=== PATIENT | female | born 1995 | race Caucasian/White ===

== ENCOUNTER 2020-02-19 08:00 | Outpatient (REF) | payer BC, SELFPAY | END 2020-02-19 08:01 | disposition home or self-care (01) | LOC: HO.LAB 08:00 | PROVIDERS: Visit Provider Internal Medicine | DX: Z20.822 Contact with and (suspected) exposure to COVID-19 (principal) | CPT/HCPCS: 36415; C9803; U0003 ==

== ENCOUNTER 2020-04-07 07:42 | Outpatient (REF) | payer BC, SELFPAY | END 2020-04-07 07:43 | disposition home or self-care (01) | LOC: HO.LAB 07:42 | PROVIDERS: Visit Provider Internal Medicine | DX: Z20.822 Contact with and (suspected) exposure to COVID-19 (principal) | CPT/HCPCS: 36415; C9803; U0003; U0005 ==

== ENCOUNTER 2023-05-25 15:54 | Outpatient (AMB) | payer OTHER, SELFPAY ==
[2023-05-25 16:08] VITALS: BP 142/84; PULSE 92; O2SAT 98; BMI 29.0
--- NOTE | 2023-05-25 16:08 | A.OFFPC_ITS ---
Vital Signs 05/25/23 16:08 Height 5 ft 10.5 in Weight 205 lb 2 oz BMI 29.0 BP 142/84 H Blood Pressure Location Lt brachial Position Sitting Pulse 92 Pulse Source Pulse Oximeter Pulse Oximetry (%) 98 Oxygen Delivery Method Room Air Intake Visit Reasons: Physical Exam Intake Note: Patient is here today for a physical AND ADHD RX request. 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 Accompanied by: Self / Same As Patient Allergies craw fish Allergy (Intermediate, Uncoded 05/25/23 16:24) Hives Medication List - Last Reconciled 05/25/23 by Bird Bermudez PA-C lorazepam 0.5 mg PO DAILY PRN trazodone 50 mg PO BEDTIME 90 days Tobacco use date assessed: 05/25/23 Dental Screening Dental Screen Date: 05/25/23 Did you have a dental visit in the last 12 months?: Yes Did you have a dental problem in the last 6 months where you did not have access to dental care?: No Was dental information given to patient?: Patient has dentist HPI Physical Exam HPI Details Patient is a 27 year male here today for annual physical. This is the 1st time I am meeting this 27-year-old with a past medical history significant for ADHD, depression and anxiety. 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 His ADHD does have affect on his attention and focus on his school work. -->ADHD: Has been on stimulant medicati on for ADHD for quite some time now. Did see the [facility] ADHD center and was diagnosed positively with the disorder. He had significant reduction in his ADHD symptoms with stimulant ADHD medication. He now needs PCP to manage his stimulant medication. Noted elevated blood pressure reading today in office. He is asymptomatic without any headaches, chest pain or dizziness. Advised to monitor his blood pressure at home. He does have a blood pressure cuff at home. Vaccine: UTD with COVID and Tdap. [facility] Medical History GERD (gastroesophageal reflux disease) Surgical History History of endoscopy History of wisdom tooth extraction Family History Mother HTN (hypertension) Father HTN (hypertension) Substance abuse Social History (Updated 05/25/23 @ 16:32 by Bird Bermudez PA-C) Housing: House (rented) Alcohol intake: current Alcohol intake frequency: a few times a week Alcohol type: other Patient Tobacco Use Status: Former Tobacco user (02/2022) Quit Date: 2022 e-Cigarette/Vaping Use: Never Used Second Hand Smoke Exposure: No Substance Use Type: Marijuana service: No Current occupational status: employed 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 1. Little interest or pleasure in doing things: not at all 2. Feeling down, depressed, or hopeless: not at all 3. Trouble falling or staying asleep, or sleeping too much: not at all 4. Feeling tired or having little energy: not at all 5. Poor appetite or overeating: not at all 6. Feeling bad about yourself - or that you are a failure or have let yourself or your family down: not at all 7. Trouble concentrating on things, such as reading the newspaper or watching television: not at all 8. Moving or speaking so slowly that other people could have noticed. Or the opposite - being so fidgety or restless that you have been moving around a lot more than usual: not at all 9. Thoughts that you would be better off or of hurting yourself in some way: not at all Total score: 0 Depression Screening Interpretation: Negative Depression Screening Done: Yes 60528 - PHQ-9 Billing: Yes Source: Developed by Drs. Eduardo Jamison, Sheyla Hodge, Jase Cartwright and colleagues, with an educational lucretia from [employer]. Thrive Questionnaire Date Thrive assessed: 05/25/23 I am a: Patient What is your living situation today?: I have a steady place to live Within the past 12 months, did the food you bought not last and you didn't have the money to get more?: Never true Within the past 12 months, did you worry whether your food would run out before you got money to buy more?: Never true Do you have trouble paying for medicines?: No Do you have trouble getting transportation to medical appointments?: No Do you have trouble paying your heating and electricity bill?: No Do you have trouble taking care of your child, family member or friend?: No Do you have trouble with day-to-day activities such as bathing, preparing meals, shopping, managing finances, etc.?: No Are you currently unemployed and looking for a job?: No Are you interested in more education?: No Please select the resources that you would like help with: None Currently or been in a relationship where the following occur: no concerns reported THRIVE Score: 0 AUDIT C Alcohol Use Questionnaire (AUDIT-C) 1. How often do you have a drink containing alcohol?: Never 3. How often do you have six or more drinks on one occasion?: Never Total Score: 0 JEB-7 AMB Questionnaire JEB-7 Date JEB - 7 assessed: 05/25/23 Feeling nervous, anxious, or on edge: 2 = More than half the days Not being able to stop or control worryin = Nearly every day Worrying too much about different things: 3 = Nearly every day Trouble relaxin = More than half the days Being so restless that it is hard to sit still: 1 = Several days Becoming easily annoyed or irritable: 3 = Nearly every day Feeling afraid as if something awful might happen: 2 = More than half the days Total JEB-7 score (0-4 normal; 5-9 mild; 10-14 moderate; 15-21 severe): 16 Source: Developed by Drs. Eduardo Jamison, Sheyla Hodge, Jase Cartwright and colleagues, with an educational lucretia from [employer]. JEB-7 Assessment Billing JEB-7 Assessment Tool: JEB-7 Assessment 32495 Review of Systems Const Denies body aches, Denies chills, Denies excessive sweating, Denies fatigue, Denies fever(s) and Denies headache(s) Eyes Denies blurry vision ENT Denies dysphagia, Denies vertigo, Denies dizziness, Denies headache(s), Denies hearing loss and Denies tinnitus Card Denies chest pain, Denies chest pain with activity, Denies syncope, Denies irregular heart rhythm and Denies dyspnea Resp Denies chest congestion, Denies cough, Denies hemoptysis, Denies dyspnea and Denies wheezing GI Denies abdominal pain, Denies melena, Denies hematochezia, Denies coffee ground emesis, Denies dysphagia, Denies diarrhea, Denies nausea and Denies vomiting Denies urinary frequency, Denies dysuria, Denies urinary hesitancy and Denies urinary urgency Musc Denies arthralgias, Denies limited range of motion, Denies muscle cramps and Denies muscle weakness Skin/Breast Denies rash and Denies skin ulcer Neuro Denies Abnormal speech present, Denies confusion, Denies vertigo, Denies dizziness, Denies syncope, Denies headache(s), Denies memory loss and Denies seizure-like activity Psych Denies anxiety, Denies confusion, Denies depression, Denies memory loss, Denies panic attacks and Denies paranoia Endo Denies excessive sweating, Denies fatigue, Denies flushing, Denies polydipsia and Denies polyuria Aller/Immun Denies wheezing Physical exam (Primary Care) Vital Signs: Last Vital Signs Pulse 92 05/25/23 16:08 BP 142/84 H 05/25/23 16:08 Pulse Ox 98 05/25/23 16:08 Oxygen Delivery Method Room Air 05/25/23 16:08 BMI result Body Mass Index 29.0 Tobacco/Smoking Status: Tobacco use Status Tobacco use date assessed 05/25/23 05/25/23 16:18 Patient Tobacco Use Status Former Tobacco user (02/2022) 05/25/23 16:32 e-Cigarette/Vaping Use Never Used 05/25/23 16:32 PHQ-9: PHQ-9 Score PHQ-9: Total score 0 05/25/23 16:33 Depression Screening Interpretation: Negative Thrive Assessment: Date of Thrive Assessment Date Thrive assessed 05/25/23 05/25/23 16:18 Currently or been in a relationship where the following occur: no concerns repor beto Const General: cooperative, comfortable, no acute distress, alert and awake; No confusion Orientation/consciousness: oriented to person, oriented to place, patient oriented x3 and No confusion HENMT Head: Yes normocephalic Ears: external ears normal and TM's normal bilaterally Face and sinus: No sinus tenderness Mouth: Normal oral and palatal mucosa present and tongue normal Teeth and gingiva: dentition normal and gingiva normal Throat: Yes posterior oropharynx normal, Yes tonsils normal and Yes uvula midline Eyes Conjunctivae: conjunctivae normal Sclerae: sclerae normal Pupils: Equal, round and reactive pupils present EOM: EOMs intact bilaterally Direct Ophthalmoscopy: No no photophobia Neck Neck: Yes no lymphadenopathy, No tender and Yes no JVD Thyroid: Thyroid normal Carotids: no bruits Chest Chest palpation & inspection: no tenderness Resp Effort & Inspection: normal respiratory effort, no audible wheezes, not labored and no stridor Auscultation: no crackles, no rales, no rhonchi and no wheezes Cardio Jugular venous distension: no JVD Rate: regular rate, not bradycardic and not tachycardic Rhythm: regular rhythm Bruits: no carotid bruits Peripheral pulses: Peripheral pulses 2+ throughout GI Inspection: Yes normal to inspection, No abdominal wall ecchymosis and No visible herniation Palpation (GI): Soft to palpation, nontender, no guarding, not rigid and No hepatosplenomegaly present Auscultation: normoactive bowel sounds General: Yes no CVA tenderness Back/Spine/Pelvis Back: no CVA tenderness and No back tenderness Cervical Spine: cervical ROM normal Thoracic/Lumbar Spine: thoracic and lumbar spine normal to inspection, straight leg raise negative bilaterally, No thoraco-lumbar ROM limited and No lumbar spinal tenderness Skin Lesions: no lesions Rashes: no rashes Wounds: no wounds Neuro General: oriented to person, oriented to place, patient oriented x3, CN's II-XI intact bilaterally and No confusion Cranial nerves: Yes Equal, round and reactive pupils present and Yes Normal accommodation reflex present Cognition (Neuro): normal cognition Speech: No Abnormal speech present Gait exam (Neuro): Normal gait present Motor exam (neuro): 5/5 motor strength present throughout Extrem Right upper extremity: full ROM; no cyanosis Left upper extremity: full ROM; no cyanosis Right lower extremity: no edema Left lower extremity: no edema Psych Appearance: grossly normal Mental Status: mental status grossly normal Affect: normal affect Attitude: cooperative Thought process: Normal thought process present Assessment and Plan Assessment & Plan (1) Annual physical exam: Code(s): Z00.00 - Encounter for general adult medical examination without abnormal findings (2) ADHD: Comment: Diagnosed in 2019. previously on Adderall. Code(s): F90.9 - Attention-deficit hyperactivity disorder, unspecified type Qualifiers: Attention deficit-hyperactivity disorder type: predominantly inattentive Qualified Code(s): F90.0 - Attention-deficit hyperactivity disorder, predominantly inattentive type Plan: As per HPI patient has had a diagnosis of ADHD. He does have documented paperwork from psychology from the [facility] ADHD center. Stimulant ADHD medication has significantly reduced his ADHD symptoms. He now needs PCP to manage his ADHD. (3) Depression: Code(s): F32.A - Depression, unspecified Qualifiers: Active/Remission status: currently active Depression Type: major depressive disorder Major depression episode severity: mild Major depression recurrence: recurrent Qualified Code(s): F33.0 - Major depressive disorder, recurrent, mild Plan: Patient's PHQ-9 score 0. (4) Generalized anxiety disorder: Code(s): F41.1 - Generalized anxiety disorder Plan: Patient's JEB-7 score positive for anxiety which has been existing condition for him. Does use lorazepam 0.5 mg on a very limited basis for panic attacks. (5) Screening for diabetes mellitus (DM): Code(s): Z13.1 - Encounter for screening for diabetes mellitus (6) Elevated blood pressure reading: Code(s): R03.0 - Elevated blood-pressure reading, without diagnosis of hypertension Plan: Noted slightly elevated blood pressure readings today in office. Did bring up concerned about starting stimulant medication. He will monitor his blood pressure at home. He will work on lifestyle changes to reduce his blood pressure as well. If blood pressure remains elevated will consider reducing stimulant med dose and starting blood pressure medication. Goal blood pressure be below 140/90 Orders: Orders Comprehensive [place]. Panel Fast 05/25/23 Z13.1 - Encounter for screening for diabetes mellitus Medications: New dextroamphetamine-amphetamine 20 mg ER (Adderall XR) Partial Fill upon patient request. 20 mg PO DAILY 28 caps 0RF 28 days F90.0 - Attention-deficit hyperactivity disorder, predominantly inattentive type Patient Instructions: Goals: Control ADHD symptoms Barriers: Compliance to medication Coding Level of Care Code Est Pt Prev Care 18-39y(49281) Diagnoses Annual physical exam Z00.00 Attention deficit hyperactivity disorder (ADHD), predominantly inattentive type F90.0 Attention deficit-hyperactivity disorder type: predominantly inattentive Mild episode of recurrent major depressive disorder F33.0 Active/Remission status: currently active Depression Type: major depressive disorder Major depression episode severity: mild Major depression recurrence: recurrent Generalized anxiety disorder F41.1 Screening for diabetes mellitus (DM) Z13.1 Elevated blood pressure reading R03.0 Additional Codes JEB-7 Assessment Billing - JEB-7 Assessment Tool: JEB-7 Assessment 92107 ([id number])
== END 2023-05-25 16:45 | disposition home or self-care (01) ==
PROVIDERS: PCP Physician Assistant; Visit Provider Physician Assistant
DX: Z00.00 Encounter for general adult medical examination without abnormal findings (principal); F90.0 Attention-deficit hyperactivity disorder, predominantly inattentive type; R03.0 Elevated blood-pressure reading, without diagnosis of hypertension; F33.0 Major depressive disorder, recurrent, mild; F41.1 Generalized anxiety disorder
CPT/HCPCS: 99395

== ENCOUNTER 2023-12-14 15:36 | Outpatient (AMB) | payer OTHER, SELFPAY ==
--- NOTE | 2023-12-14 15:37 | MHC.PC.OV ---
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 Patient has a history significant for ADHD, depression and anxiety, elevated blood pressure reading. 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 His ADHD does have affect on his attention and focus on his school work. -->ADHD: Has been on stimulant medication for ADHD for quite some time now. Did see the [facility] ADHD center and was diagnosed positively with the disorder. He has found significant reduction in his ADHD symptoms with the use of stimulant medication. Noted elevated blood pressure reading today in office. He is asymptomatic without any headaches, chest pain or dizziness. He has been monitoring his blood pressure from time to time and does still get 140s systolic at home. He is willing to start blood pressure medication at this time for better blood pressure control. Will Start lisinopril 5 mg. 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 How often do you have six or more drinks on one occasion?: Never Total Score: 0 JEB-7 AMB Questionnaire JEB-7 Date JEB - 7 assessed: 05/25/23 Source: Developed by Drs. Eduardo Jamison, Sheyla Hodge, Jase Cartwright and colleagues, with an educational lucretia from [facility]. Review of Systems Const Denies headache(s) Eyes Denies loss of vision ENT Denies vertigo, Denies dizziness, Denies headache(s) and Denies sore throat Card Denies chest pain, Denies leg edema and Denies lightheadedness Resp Denies cough, Denies hemoptysis and Denies wheezing GI Denies abdominal pain, Denies melena, Denies constipation, Denies diarrhea and Denies vomiting Denies urinary frequency, Denies dysuria and Denies urinary urgency Musc Denies arthralgias, Denies joint swelling, Denies numbness and Denies tingling Neuro Denies Abnormal speech present, Denies behavioral changes, Denies vertigo, Denies dizziness, Denies headache(s), Denies loss of vision, Denies memory loss, Denies numbness and Denies tingling Psych Denies anxiety, Denies behavioral changes, Denies depression, Denies memory loss and Denies panic attacks Raj/Lymph Denies easy bleeding and Denies easy bruising Aller/Immun Denies wheezing Physical exam (Primary Care) Vital Signs: Last Vital Signs Pulse 87 12/14/23 15:45 BP 160/100 H 12/14/23 15:45 Pulse Ox 98 12/14/23 15:45 Oxygen Delivery Method Room Air 12/14/23 15:45 BMI result Body Mass Index 28.1 Tobacco/Smoking Status: Tobacco use Status Tobacco use date assessed 05/25/23 12/14/23 15:37 Patient Tobacco Use Status Former Tobacco user (02/2022) 12/14/23 15:37 e-Cigarette/Vaping Use Never Used 12/14/23 15:37 Thrive Assessment: Date of Thrive Assessment Date Thrive assessed 05/25/23 12/14/23 15:37 Const General: healthy appearing, no acute distress, alert and awake Nutritional Appearance: well nourished Orientation/consciousness: oriented to person, oriented to place and oriented to time HENMT Ears: TM's normal bilaterally General nose exam: Normal nasal mucous membranes and turbinates present Eyes Conjunctivae: conjunctivae normal Sclerae: sclerae normal Pupils: Equal, round and reactive pupils present Neck Neck: Yes no lymphadenopathy and Yes no JVD Thyroid: Thyroid normal Carotids: no bruits Resp Effort & Inspection: normal respiratory effort and not tachypneic Auscultation: no crackles, no rales, no rhonchi and no wheezes Cardio Rate: regular rate Rhythm: regular rhythm Heart sounds: no murmurs and normal S1 and S2 GI Palpation (GI): Soft to palpation, nontender, no hepatomegaly and no splenomegaly Auscultation: normal bowel sounds Skin General skin exam: no rashes or lesions noted and dry skin Neuro General: oriented to person, oriented to place and oriented to time Cranial nerves: Yes Equal, round and reactive pupils present Speech: No Abnormal speech present Gait exam (Neuro): Normal gait present Motor exam (neuro): no tremor noted Extrem Right upper extremity: full ROM Left upper extremity: full ROM Right lower extremity: full ROM; no edema Left lower extremity: full ROM; no edema Psych Mental Status: mental status grossly normal Speech and movement: Normal speech and movement present Affect: normal affect Attitude: cooperative Thought process: Normal thought process present Coding Level of Care Code Est Pt Level 4 (99600) Diagnoses Attention deficit hyperactivity disorder (ADHD), predominantly inattentive type F90.0 Attention deficit-hyperactivity disorder type: predominantly inattentive Primary hypertension I10 Hypertension type: primary hypertension Assessment & Plan Assessment & Plan (1) ADHD: Comment: Diagnosed in 2019. previously on Adderall. 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 (2) HTN (hypertension): Code(s): I10 - Essential (primary) hypertension Category: Medical Qualifiers: Hypertension type: primary hypertension Qualified Code(s): I10 - Essential (primary) hypertension Plan: Patient's blood pressure remains elevated, was elevated at last visit. Could be related to stimulant ADHD medication. He is willing to start blood pressure medication. Will start lisinopril 5 mg daily basis advised to monitor blood pressure with goal blood pressure to be below 140/90 Medications: New lisinopril 5 mg PO DAILY 30 tabs 2RF 30 days I10 - Essential (primary) hypertension
[2023-12-14 15:45] VITALS: BP 160/100; PULSE 87; O2SAT 98; BMI 28.1
== END 2023-12-14 16:15 | disposition home or self-care (01) ==
LOC: HO.HMCH 15:36
PROVIDERS: PCP Physician Assistant; Visit Provider Physician Assistant
DX: F90.0 Attention-deficit hyperactivity disorder, predominantly inattentive type (principal); I10 Essential (primary) hypertension

== ENCOUNTER → 2023-12-14 15:36 | Outpatient (BNVA) | payer OTHER, SELFPAY | PROVIDERS: PCP Physician Assistant; Visit Provider Physician Assistant ==

== ENCOUNTER 2024-05-28 15:48 | Outpatient (AMB) | payer OTHER, SELFPAY ==
--- NOTE | 2024-05-28 16:01 | A.OFFPC_ITS ---
Vital Signs 05/28/24 16:02 Height 5 ft 10.5 in Weight 201 lb 6 oz BMI 28.5 BP 138/90 H Blood Pressure Location Lt brachial Position Sitting Pulse 99 Pulse Source Pulse Oximeter Temp 97.8 F Temp Source Temporal Artery Scan Pulse Oximetry (%) 98 Oxygen Delivery Method Room Air Intake Visit Reasons: annual exam Allergies craw fish Allergy (Intermediate, Uncoded 05/28/24 16:29) Hives Medication List - Last Reconciled 05/28/24 by Bird Bermudez PA-C dextroamphetamine-amphetamine 20 mg ER (Adderall XR) 20 mg PO DAILY 28 days lisinopril 5 mg PO DAILY 90 days lorazepam 0.5 mg PO DAILY PRN 4 days trazodone 50 mg PO BEDTIME 90 days Tobacco use date assessed: 05/25/23 Dental Screening Dental Screen Date: 05/25/23 HPI annual exam HPI Details Patient is a 28-year-old male here today for a routine annual physical Patient has a history significant for ADHD, depression and anxiety, elevated blood pressure reading. 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 His ADHD does have affect on his attention and focus on his school work. -->ADHD: Has been on stimulant medicati on for ADHD for quite some time now. Did see the [facility] and was diagnosed positively with the disorder. He has found significant reduction in his ADHD symptoms with the use of stimulant medication. He continues on Adderall on a p.r.n. basis with good effect on his attention and focus on his job detail tasks. Hypertension: Noted elevated blood pressure reading today in office. Continues on lisinopril 5 mg. He reports that home blood pressures are 120s to 130 systolic. He reports recently having more interpersonal stress and has been eating foods high in sodium. He will make some changes in his diet. He is asymptomatic without any headaches, chest pain or dizziness. He has been monitoring his blood pressure from time to time and does still get 140s systolic at home. Vaccines: Up-to-date with COVID vaccine, tetanus vaccine [facility] Medical History GERD (gastroesophageal reflux disease) Surgical History History of endoscopy History of wisdom tooth extraction Family History Mother HTN (hypertension) Father HTN (hypertension) Substance abuse Social History (Updated 05/28/24 @ 16:32 by Bird Bermudez PA-C) Housing: House (rented) Alcohol intake: current Alcohol intake frequency: a few times a month Alcohol type: other Patient Tobacco Use Status: Current everyday Tobacco user (02/2022) Tobacco use type: Cigarette Cigarettes Per Day: 4 e-Cigarette/Vaping Use: Never Used Second Hand Smoke Exposure: No Substance Use Type: Marijuana service: No Current occupational status: employed 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 1. Little interest or pleasure in doing things: not at all 2. Feeling down, depressed, or hopeless: not at all 3. Trouble falling or staying asleep, or sleeping too much: not at all 4. Feeling tired or having little energy: not at all 5. Poor appetite or overeating: not at all 6. Feeling bad about yourself - or that you are a failure or have let yourself or your family down: not at all 7. Trouble concentrating on things, such as reading the newspaper or watching television: not at all 8. Moving or speaking so slowly that other people could have noticed. Or the opposite - being so fidgety or restless that you have been moving around a lot more than usual: not at all 9. Thoughts that you would be better off or of hurting yourself in some way: not at all Total score: 0 Depression Screening Interpretation: Negative Depression Screening Done: Yes 18206 - PHQ-9 Billing: Yes Source: Developed by Drs. Eduardo Jamison, Sheyla Hodge, Jase Cartwright and colleagues, with an educational lucretia from [employer]. Thrive Questionnaire Date Thrive assessed: 05/28/24 I am a: Patient What is your living situation today?: I have a steady place to live Within the past 12 months, did the food you bought not last and you didn't have the money to get more?: Never true Within the past 12 months, did you worry whether your food would run out before you got money to buy more?: Never true Do you have trouble paying for medicines?: No Do you have trouble getting transportation to medical appointments?: No Do you have trouble paying your heating and electricity bill?: No Do you have trouble taking care of your child, family member or friend?: No Do you have trouble with day-to-day activities such as bathing, preparing meals, shopping, managing finances, etc.?: No Are you currently unemployed and looking for a job?: No Are you interested in more education?: Yes Please select the resources that you would like help with: None Currently or been in a relationship where the following occur: No concerns reported THRIVE Score: 0 AUDIT C Alcohol Use Questionnaire (AUDIT-C) 1. How often do you have a drink containing alcohol?: Monthly or less 2. How many drinks containing alcohol do you have on a typical day when you are drinking?: 1 or 2 3. How often do you have six or more drinks on one occasion?: Never Total Score: 1 JEB-7 AMB Questionnaire JEB-7 Date JEB - 7 assessed: 05/28/24 Feeling nervous, anxious, or on edge: 0 = Not at all Not being able to stop or control worryin = Not at all Worrying too much about different things: 0 = Not at all Trouble relaxin = Not at all Being so restless that it is hard to sit still: 0 = Not at all Becoming easily annoyed or irritable: 0 = Not at all Feeling afraid as if something awful might happen: 0 = Not at all Total JEB-7 score (0-4 normal; 5-9 mild; 10-14 moderate; 15-21 severe): 0 Source: Developed by Drs. Eduardo Jamison, Sheyla Hodge, Jase Cartwright and colleagues, with an educational lucretia from [employer]. JEB-7 Assessment Billing JEB-7 Assessment Tool: JEB-7 Assessment 86641 Review of Systems Const Denies body aches, Denies chills, Denies excessive sweating, Denies fatigue, Denies fever(s) and Denies headache(s) Eyes Denies blurry vision ENT Denies dysphagia, Denies vertigo, Denies dizziness, Denies headache(s), Denies hearing loss and Denies tinnitus Card Denies chest pain, Denies chest pain with activity, Denies syncope, Denies irregular heart rhythm and Denies dyspnea Resp Denies chest congestion, Denies cough, Denies hemoptysis, Denies dyspnea and Denies wheezing GI Denies abdominal pain, Denies melena, Denies hematochezia, Denies coffee ground emesis, Denies dysphagia, Denies diarrhea, Denies nausea and Denies vomiting Denies urinary frequency, Denies dysuria, Denies urinary hesitancy and Denies urinary urgency Musc Denies arthralgias, Denies limited range of motion, Denies muscle cramps and Denies muscle weakness Skin/Breast Denies rash and Denies skin ulcer Neuro Denies Abnormal speech present, Denies confusion, Denies vertigo, Denies dizziness, Denies syncope, Denies headache(s), Denies memory loss and Denies seizure-like activity Psych Denies anxiety, Denies confusion, Denies depression, Denies memory loss, Denies panic attacks and Denies paranoia Endo Denies excessive sweating, Denies fatigue, Denies flushing, Denies polydipsia and Denies polyuria Aller/Immun Denies wheezing Physical exam (Primary Care) Vital Signs: Last Vital Signs Temp 97.8 F 05/28/24 16:02 Pulse 99 05/28/24 16:02 BP 138/90 H 05/28/24 16:02 Pulse Ox 98 05/28/24 16:02 Oxygen Delivery Method Room Air 05/28/24 16:02 Care Plan Goal for BP management: Will work on lifestyle and dietary changes, continue lisinopril 5 mg Next steps: Will work on reducing sodium in his diet. BMI result Body Mass Index 28.5 Tobacco/Smoking Status: Tobacco use Status Tobacco use date assessed 05/25/23 05/28/24 16:02 Patient Tobacco Use Status Former Tobacco user (02/2022) 05/28/24 16:02 e-Cigarette/Vaping Use Never Used 05/28/24 16:02 PHQ-9: PHQ-9 Score PHQ-9: Total score 0 05/28/24 16:02 Depression Screening Interpretation: Negative Thrive Assessment: Date of Thrive Assessment Date Thrive assessed 05/28/24 05/28/24 16:02 Currently or been in a relationship where the following occur: No concerns reported Const General: cooperative, comfortable, no acute distress, alert and awake; No confusion Orientation/consciousness: oriented to person, oriented to place, patient oriented x3 and No confusion HENMT Head: Yes normocephalic Ears: external ears normal and TM's normal bilaterally Face and sinus: No sinus tenderness Mouth: Normal oral and palatal mucosa present and tongue normal Teeth and gingiva: dentition normal and gingiva normal Throat: Yes posterior oropharynx normal, Yes tonsils normal and Yes uvula midline Eyes Conjunctivae: conjunctivae normal Sclerae: sclerae normal Pupils: Equal, round and reactive pupils present EOM: EOMs intact bilaterally Direct Ophthalmoscopy: No no photophobia Neck Neck: Yes no lymphadenopathy, No tender and Yes no JVD Thyroid: Thyroid normal Carotids: no bruits Chest Chest palpation & inspection: no tenderness Resp Effort & Inspection: normal respiratory effort, no audible wheezes, not labored and no stridor Auscultation: no crackles, no rales, no rhonchi and no wheezes Cardio Jugular venous distension: no JVD Rate: regular rate, not bradycardic and not tachycardic Rhythm: regular rhythm Bruits: no carotid bruits Peripheral pulses: Peripheral pulses 2+ throughout GI Inspection: Yes normal to inspection, No abdominal wall ecchymosis and No v isible herniation Palpation (GI): Soft to palpation, nontender, no guarding, not rigid and No hepatosplenomegaly present Auscultation: normoactive bowel sounds General: Yes no CVA tenderness Back/Spine/Pelvis Back: no CVA tenderness and No back tenderness Cervical Spine: cervical ROM normal Thoracic/Lumbar Spine: thoracic and lumbar spine normal to inspection, straight leg raise negative bilaterally, No thoraco-lumbar ROM limited and No lumbar spinal tenderness Skin Lesions: no lesions Rashes: no rashes Wounds: no wounds Neuro General: oriented to person, oriented to place, patient oriented x3, CN's II-XI intact bilaterally and No confusion Cranial nerves: Yes Equal, round and reactive pupils present and Yes Normal accommodation reflex present Cognition (Neuro): normal cognition Speech: No Abnormal speech present Gait exam (Neuro): Normal gait present Motor exam (neuro): 5/5 motor strength present throughout Extrem Right upper extremity: full ROM; no cyanosis Left upper extremity: full ROM; no cyanosis Right lower extremity: no edema Left lower extremity: no edema Psych Appearance: grossly normal Mental Status: mental status grossly normal Affect: normal affect Attitude: cooperative Thought process: Normal thought process present Coding Level of Care Code Est Pt Prev Care 18-39y([id number]) Diagnoses Annual physical exam Z00.00 Attention deficit hyperactivity disorder (ADHD), predominantly inattentive type F90.0 Attention deficit-hyperactivity disorder type: predominantly inattentive Primary hypertension I10 Hypertension type: primary hypertension Additional Codes JEB-7 Assessment Billing - JEB-7 Assessment Tool: JEB-7 Assessment 63351 ([id number]) PHQ-9 - 60177 - PHQ-9 Billing: Yes ([id number]) Assessment & Plan Assessment & Plan (1) Annual physical exam: Code(s): Z00.00 - Encounter for general adult medical examination without abnormal findings Category: Medical Plan: As per HPI (2) ADHD: Comment: Diagnosed in 2019. previously on Adderall. 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 He does report normal blood readings at home 120s to 130 systolic. Will continues current dose of lisinopril for now in make dietary and lifestyle changes. Goal blood pressure to be below 140/90 Orders: Orders Comprehensive [place]. Panel Fast Today Z13.1 - Encounter for screening for marisa betes mellitus Complete Blood Count no Diff Today Z13.1 - Encounter for screening for diabetes mellitus
[2024-05-28 16:02] VITALS: BP 138/90; PULSE 99; TEMP 36.6; O2SAT 98; BMI 28.5
--- OUTSIDE RECORDS SUMMARY | 2024-05-28 18:35 | XMS_ITS | Encounter Summary ---
Author Organization [facility] Address [address] [place] [address] Care Team Providers Care Public Relations Supervisor Name Role Phone Hailey Hernandez NP Primary Care Provider [phone] Encounter Details Date Type Department Care Team (Late st Contact Info) Description 05/25/2021 Scanned Document [facility] [address] [facility] [address] [facility] [address] [place] [address] Rasheed Loaiza MD [address] [facility] [address] [place], [place] [address] Social History Tobacco Use Types Packs/Day Years Used Date Smoking Tobacco: Former Cigarettes 1 10 Smokeless Tobacco: Never Alcohol Use Standard Drinks/Week Comments Yes 0 (1 standard drink = 0.6 oz pur e alcohol) 3 drinks a week Sex and Gender Information Value Date Recorded Sex Assigned at Not on file Legal Sex Male 1:04 PM EDT Gender Identity Male 05/02/2021 9:04 AM EDT Sexual Orientation Homosexual (lesbian or deluna) 0 05/02/2021 9:04 AM EDT COVID-19 Exposure Response Date Recorded In the last month, have you been in contact with someone who was confirmed or suspected to have Coronavirus / COVID-19? No / Unsure 05/14/2021 9:35 AM EDT documented as of this encounter Plan of Treatment Not on file documented as of this encounter Visit Diagnoses Not on filedocumented in this encounter Care Teams Public Relations Supervisor Relationship Specialty Start Date End Date Hailey Hernandez NP [address], [place] [address] PCP - General Family Medicine 04/29/21 documented as of this encounter
--- OUTSIDE RECORDS SUMMARY | 2024-05-28 18:35 | XMS_ITS ---
Author Name [facility] Organization Unknown Problems Problem Status Onset Date Problem Type Date of Resoluti on Source Tinea unguium active 2022-12-28 Problem[address] [place]_P [facility]YSONE Encounters Encounter Type Encounter Reason Primary Diagnosis Location Date Ambulatory [facility] 12/28/2022 Ambulatory Epigastric pain [facility] [employer] 07/09/2021 Ambulatory Abnormal weight loss [facility] 06/04/2021 Ambulatory Nausea [facility] [employer] 05/14/2021 Care Team Organization Name Specialty Phone Email Start Date End Da te [facility] Not Found Primary Care 02/26/2023 [facility] 12/28/2022 [facility] 07/09/2021 09/25/19 24 [facility] 05/14/2021 07/10/19
--- OUTSIDE RECORDS SUMMARY | 2024-05-28 18:35 | XMS_ITS | Clinical Summary ---
Author Organization [facility] Address [address] [place] [address] Care Team Providers Care Recovery Coordinator Name Role Phone MaryHailey Ajit CAMPO Primary Care Provider Allergies Active Allergy Reactions Criticality Noted Date Comments Shellfish-Derived Products Hives Medium 2 Medications traZODone (DESYREL) 50 MG tablet 12/25/2018 Active LORazepam (ATIVAN) 0.5 MG tablet Take 0.5 mg by mouth as needed. Active famotidine (PEPCID) 20 MG tabletIndication s:Other chronic gastritis without hemorrhage,Nause a,Dyspepsia Take 1 tablet (20 mg total) by mouth 2 (two) times a day. 180 tablet 3 06/08/2021 Active Probiotic Product (PROBIOTIC-10 PO) Take by mouth. Active Active Problems Problem Noted Date Diagnosed Date Dyspepsia 05/14/2021 Assessment & Plan (07/09/2021 12:58 PM EDT): Patient dyspepsia may be secondary to mild gastritis by EGD. He did not start acid suppression but feeling better with dietary changes and probiotic. Since has dyspepsia day after drinking alcohol advised pepcid for 4 weeks and if asymptomatic may stop medication. He will conttact office prn. Assessment & Plan (05/14/2021 10:13 AM EDT): See below Resolved Problems Problem Noted Date Diagnosed Date Resolved Date Weight loss 05/14/2021 07/09/2021 Assessment & Plan (05/14/2021 10:13 AM EDT): See below Nausea 05/14/2021 07/09/2021 Assessment & Plan (05/14/2021 10:13 AM EDT): Patient with daily nausea, dyspepsia and 10 pound weight loss since January 2021. No improvement with daily PPI therapy. EGD advised to rule out celiac sprue, pud, h pylori, gastritis.The risks, benefits and alternatives to the procedure were carefully explained to the patient. The risks include but are not limited to perforation, bleeding, infection, respiratory compromise and . All questions were answered. Abd ultrasound to rule out gb disease, labs ordered for cbc, lfts, lipase and celiac markers. Immunizations Immunization Administration Dates Next Due Covid-19 MRNA Vaccine - [employer] 12+ (Purple Cap) 04/10/2020,03/20/2020 Family History Medical History Relation Name Comments Hypertension Mother Celiac disease Neg Hx Colon cancer Neg Hx Colon polyps Neg Hx Crohn's disease Neg Hx Relation Name Status Comments Mother Social History Tobacco Use Types Packs/Day Years [...] or deluna) 0 05/02/2021 9:04 AM EDT Last Filed Vital Signs Vital Sign Reading Time Taken Comments Blood Pressure 134/73 05/14/2021 9:48 AM EDT Pulse 76 05/14/2021 9:48 AM EDT Temperature 36.2 ??C (97.2 ??F) 05/14/2021 9:48 AM ED T Respiratory Rate - - Oxygen Saturation - - Inhaled Oxygen Concentration - - Weight 79.8 kg (176 lb) 05/14/2021 9:48 AM EDT Height 180.3 cm (5' 11 ) 05/14/2021 9:48 AM EDT Body Mass Index 24.55 05/14/2021 9:48 AM EDT Plan of Treatment Health Maintenance Due Date Last Done Comments Hepatitis C Virus Screening 1994 HIV Screening 12/02/2007 DTaP/Tdap/Td Vaccines (1 - Tdap) 2013 Hepatitis B Vaccines (1 of 3 - 19+ 3-dose series) 2013 Influenza Vaccine 09/07/2023 12/13/2019, , 10/21/2018, Additional history exists COVID-19 Vaccine ( season) 2023 02/03/2021, 04/10/2020, 03/20/2020 HPV Vaccines Aged Out No longer eligi ble based on patient's age to complete this topic Pneumococcal Vaccine: Pediatric (0-5 Years) and At-Risk Patients (6 to 49 Years) Aged Out No longer eligible based on patient's age to complete this topic Insurance - [facility] [place] Care Teams Recovery Coordinator Relationship Specialty Start Date End Date Hailey Hernandez NP [address] [place] [address] PCP - General Family Medicine 04/29/21
--- OUTSIDE RECORDS SUMMARY | 2024-05-28 18:35 | XMS_ITS | Patient Health Record ---
Author Organization [facility], Address [address] [place] [address] Support Name Relationship Address Phone Michael Griffiths Guarantor Unknown [phone] Reason For Referral No Information Plan Of Treatment No Information Insurance Providers Payer Name Payer Address Payer Phone Subscriber Number Group Number Insured Name Patient Relationship to Insured Coverage Start Date Coverage End Date [facility] [address] [place] [address] [id number] Michael Griffiths Self - patient is the insured
== END 2024-05-28 16:45 | disposition home or self-care (01) ==
LOC: HO.HMCH 15:49
PROVIDERS: PCP Physician Assistant; Visit Provider Physician Assistant
DX: Z00.00 Encounter for general adult medical examination without abnormal findings (principal); F90.0 Attention-deficit hyperactivity disorder, predominantly inattentive type; I10 Essential (primary) hypertension

== ENCOUNTER → 2024-05-28 15:48 | Outpatient (BNVA) | payer OTHER, SELFPAY | PROVIDERS: PCP Physician Assistant; Visit Provider Physician Assistant | DX: Z00.00 Encounter for general adult medical examination without abnormal findings (principal); F90.0 Attention-deficit hyperactivity disorder, predominantly inattentive type; I10 Essential (primary) hypertension | CPT/HCPCS: 96127 ==

== ENCOUNTER 2024-05-31 13:16 | Outpatient (REF) | payer OTHER, SELFPAY ==
--- OUTSIDE RECORDS SUMMARY | 2024-05-31 13:59 | XMS_ITS | Patient Health Record ---
Author Organization [facility], Address [address] [place] [address] Support Name Relationship Address Phone Michael Griffiths Guarantor Unknown [phone] Reason For Referral No Information Plan Of Treatment No Information Insurance Providers Payer Name Payer Address Payer Phone Subscriber Number Group Number Insured Name Patient Relationship to Insured Coverage Start Date Coverage End Date [facility] [address] [place] [address] [phone] [id number] Michael Griffiths Self - patient is the insured
--- OUTSIDE RECORDS SUMMARY | 2024-05-31 13:59 | XMS_ITS | Encounter Summary ---
Author Organization [facility] Address [address] [place] [address] Care Team Providers Care Die Forger Name Role Phone Hailey Hernandez NP Primary Care Provider [phone] Encounter Details Date Type Department Care Team (Late st Contact Info) Description 05/25/[address] [facility] [address] [facility] [address] [place] [address] Rasheed Loaiza MD [address] [facility] [address] [place], [place] [address] Social History Tobacco Use Types Packs/Day Years [...] on filedocumented in this encounter Care Teams Die Forger Relationship Specialty Start Date End Date Hailey Hernandez NP [address], [place] [address] PCP - General Family Medicine 04/29/21 documented as of this encounter
--- OUTSIDE RECORDS SUMMARY | 2024-05-31 13:59 | XMS_ITS | Clinical Summary ---
Author Organization [facility] Address [address] [place] [address] Care Team Providers Care Retail Sales Vitamin Consultant Name Role Phone MaryHailey Ajit CAMPO Primary Care Provider [phone] Allergies Active Allergy Reactions Criticality Noted Date [...] Dates Next Due Covid-19 MRNA Vaccine - [employer] 12+ (Purple Cap) 04/10/2020,03/20/2020 Family History Medical [...] age to complete this topic Insurance - [facility] [place] Care Teams Retail Sales Vitamin Consultant Relationship Specialty Start Date End Date Hailey Hernandez NP [address] [place] [address] PCP - General Family Medicine 04/29/21
[2024-06-01 03:39] LABS: HBS Num1 200.92 mIU/mL (0-7.99); ~Hepatitis B Surface Antibody REACTIVE (Nonreactive)
[2024-06-03 18:28] LABS: TS Negative Control Passed; TS Panel A 9; TS Panel B 2; TS Positive Control Passed; TSpotTB Positive (Negative)
== END 2024-05-31 13:17 | disposition home or self-care (01) ==
LOC: HO.LAB 13:16
PROVIDERS: PCP Physician Assistant; Visit Provider Physician Assistant
DX: Z11.1 Encounter for screening for respiratory tuberculosis (principal); Z78.9 Other specified health status
CPT/HCPCS: 36415; 86481; 86706

== ENCOUNTER 2024-06-05 08:14 | Outpatient (REF) | payer OTHER, SELFPAY ==
--- NOTE | ~2024-06-05 | XR_ITS ---
CLINICAL HISTORY: Z11.1 - Encounter for screening for respiratory tuberculosis 2 view chest x-ray Comparison: None Findings: The lungs are clear. Heart size is normal. No acute fracture. IMPRESSION: 1. No acute findings. This document has been electronically signed by: Chandu Griffin MD on 06/07/2024 08:52:01
--- OUTSIDE RECORDS SUMMARY | 2024-06-05 08:28 | XMS_ITS | Encounter Summary ---
Author Organization [facility] Address [address] [place] [address] Care Team Providers Care Shear Grinder Operator Name Role Phone Hailey Hernandez NP Primary Care Provider [phone] Encounter Details Date Type Department Care Team (Late st Contact Info) Description 05/25/2021 Scanned Document [facility] [address] [facility] [address] [place] [address] Rasheed Loaiza MD [address] [facility] [address] [place], [place] [address] Social History Tobacco Use Types Packs/Day Years [...] on filedocumented in this encounter Care Teams Shear Grinder Operator Relationship Specialty Start Date End Date Hailey Hernandez NP [address], [place] [address] PCP - General Family Medicine 04/29/21 documented as of this encounter
--- OUTSIDE RECORDS SUMMARY | 2024-06-05 08:28 | XMS_ITS | Clinical Summary ---
Author Organization [facility] Address [address] [place] [address] Care Team Providers Care Data Integrity Analyst Name Role Phone MaryHailey Ajit CAMPO Primary Care Provider [phone] Allergies Active Allergy Reactions Criticality Noted Date [...] Dates Next Due Covid-19 MRNA Vaccine - [employer] 12+ (Purple Cap) 04/10/2020,03/20/2020 Family History Medical [...] age to complete this topic Insurance - [facility] Care Teams Data Integrity Analyst Relationship Specialty Start Date End Date Hailey Hernandez NP [address] [place] [address] PCP - General Family Medicine 04/29/21
== END 2024-06-05 08:15 | disposition home or self-care (01) ==
LOC: HO.XRAY 08:14
PROVIDERS: PCP Physician Assistant; Visit Provider Physician Assistant
DX: Z11.1 Encounter for screening for respiratory tuberculosis (principal)
CPT/HCPCS: 71046

== ENCOUNTER → 2024-06-05 08:18 | Outpatient (BNV) | payer OTHER, SELFPAY | PROVIDERS: PCP Physician Assistant; Visit Provider Specialist | DX: Z11.1 Encounter for screening for respiratory tuberculosis (principal) | CPT/HCPCS: 71046 ==

== ENCOUNTER 2024-06-14 13:14 | Outpatient (REF) | payer OTHER, SELFPAY ==
--- OUTSIDE RECORDS SUMMARY | 2024-06-14 13:17 | XMS_ITS | Clinical Summary ---
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 Name Role Phone MaryHailey Ajit CAMPO Primary Care Provider [phone] Allergies Active Allergy Reactions Criticality Noted Date [...] Dates Next Due Covid-19 MRNA Vaccine - Bokecc 12+ (Purple Cap) 04/10/2020,03/20/2020 Family History Medical [...] of 3 - 19+ 3-dose series) 2013 COVID-19 Vaccine ( season) 2023 02/03/2021, 04/10/2020, 03/20/2020 Influenza Vaccine 09/06/2024 12/13/2019, , 10/21/2018, Additional history exists HPV Vaccines Aged Out No longer eligi ble based on patient's age to complete this topic Pneumococcal Vaccine: Pediatric (0-5 Years) and At-Risk Patients (6 to 49 Years) Aged Out No longer eligible based on patient's age to complete this topic Insurance - [facility] [place] Care Teams Fishing Vessel Captain Relationship Specialty Start Date End Date Hailey Hernandez NP [address] [place] [address] PCP - General Family Medicine 04/29/21
--- OUTSIDE RECORDS SUMMARY | 2024-06-14 13:17 | XMS_ITS | Patient Health Record ---
Author Organization [facility], Address [address] [place] [address] Support Name Relationship Address Phone Michael Griffiths Guarantor Unknown Reason For Referral No Information Plan Of Treatment No Information Insurance Providers Payer Name Payer Address Payer Phone Subscriber Number Group Number Insured Name Patient Relationship to Insured Coverage Start Date Coverage End Date [facility] [address] [place] [address] [id number] Michael Griffiths Self - patient is the insured
--- OUTSIDE RECORDS SUMMARY | 2024-06-14 13:17 | XMS_ITS | Encounter Summary ---
Author Organization [facility] Address [address] [place] [address] Care Team Providers Care Chief Controller Tower Name Role Phone Hailey Hernandez NP Primary Care Provider [phone] Encounter Details Date Type Department Care Team (Late st Contact Info) Description 05/25/2021 Scanned Document [facility] [address] [place] [address] Rasheed Loaiza MD [address] [facility] [address] [place], [place] [id number] Social History Tobacco Use Types Packs/Day Years [...] on filedocumented in this encounter Care Teams Chief Controller Tower Relationship Specialty Start Date End Date Hailey Hernandez NP [address], [place] [address] PCP - General Family Medicine 04/29/21 documented as of this encounter
[2024-06-17 17:58] LABS: TS Negative Control Passed; TS Panel A 3; TS Panel B 3; TS Positive Control Passed; TSpotTB Negative (Negative)
== END 2024-06-14 13:15 | disposition home or self-care (01) ==
LOC: HO.LAB 13:14
PROVIDERS: Visit Provider Physician Assistant
DX: Z11.1 Encounter for screening for respiratory tuberculosis (principal)
CPT/HCPCS: 36415; 86481